=== PATIENT | female | born 1950 | race Caucasian/White ===

== ENCOUNTER → 2020-08-04 13:48 | Outpatient (CLI) | payer MEDICARE, OTHER, SELFPAY ==
--- NOTE | ~2020-08-04 | XR_ITS ---
EXAMINATION: XR foot RT min 3V DATE: 08/04/2020 14:28 INDICATION: Right foot pain TECHNIQUE: Dorsoplantar, lateral, and oblique views of the right foot were obtained. COMPARISON: 03/21/2015 FINDINGS: There is advanced osteoarthritis at the first metatarsophalangeal joint with interval worse ramo since the comparison. No fracture is identified. Bone alignment is normal. A plantar calcaneal e nthesophyte is present. The soft tissues are unremarkable. IMPRESSION: 1. 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 Reviewed, dictated and finalized at location A.
== END ==
PROVIDERS: PCP Family Medicine; Visit Provider Podiatrist Foot & Ankle Surgery
DX: M79.671 Pain in right foot (principal); M19.071 Primary osteoarthritis, right ankle and foot
CPT/HCPCS: 73630

== ENCOUNTER 2020-11-07 07:39 | Outpatient (CLI) | payer MEDICARE, OTHER, SELFPAY ==
--- NOTE | 2020-11-07 | EST_ITS ---
Patient Info Name: Iram Bower Age: 69 years : 1950 Gender: Female Ht: 60 in Wt: 101 lbs BSA: 1.39 m2 Exam Date: 11/07/2020 8:45 AM Exam Location: [facility] Patient Status: Outpatient Admit Date: 11/07/2020 Staff Ordering Physician: Marilyn, Yenny French MD Attending Provider: Marilyn, Yenny French MD Exercise Technologist: Rhonda Dixon RDCS Exam Type: CA stress ganesh w NM Study Info Indications Z01.818 - Encounter for other preprocedural examination A regadenoson stress test was performed. Protocol: Lexiscan Stress ECG Details Stage: REST Duration (min): 8 min : 58 sec HR (bpm): 65 SBP (mmHg): 127 DBP (mmHg): 78 Stage: REST Duration (min): 17 min : 17 sec HR (bpm): 66 SBP (mmHg): 127 DBP (mmHg): 78 Stage: STAGE 1 Duration (min): 0 min : 59 sec HR (bpm): 100 SBP (mmHg): 132 DBP (mmHg): 83 Stage: RECOVERY Duration (min): 1 min : 0 sec HR (bpm): 88 SBP (mmHg): 117 DBP (mmHg): 83 Stage: RECOVERY Duration (min): 2 min : 0 sec HR (bpm): 80 SBP (mmHg): 117 DBP (mmHg): 83 Stage: RECOVERY Duration (min): 3 min : 0 sec HR (bpm): 74 SBP (mmHg): 115 DBP (mmHg): 79 Stage: RECOVERY Duration (min): 4 min : 0 sec HR (bpm): 75 SBP (mmHg): 121 DBP (mmHg): 77 Stage: RECOVERY Duration (min): 4 min : 3 sec HR (bpm): 74 SBP (mmHg): 121 DBP (mmHg): 77 Rest HR: 66 bpm Peak HR: 107 bpm Rest Sys BP: 127 mmHg Peak Sys BP: 132 mmHg Max Pred HR: 151 bpm % Max Pred HR: 71 % Target HR: 128 bpm Max RPP: 14,124 bpm*mmHg Total Time: 1 min : 0 sec Rest Noonan BP: 78 mmHg Peak Noonan BP: 83 mmHg Total Dose: 0.4 mg Resting ECG Normal sinus rhythm - normal ECG. Stress ECG no EKG ischemic changes with lexiscan. Arrhythmias None. Report Signatures
--- NOTE | ~2020-11-07 | NM_ITS ---
EXAMINATION: NM ganesh stress w perfusion DATE: 11/07/2020 11:19 INDICATION: Preoperative evaluation patient with diabetes and coronary artery disease.. TECHNIQUE: Rest images were obtained following intravenous administration of 8 mCi Tc99m tetrofosmin (Myoview). The patient was infused intravenously with Lexiscan (Regadenoson). Then, 24.5 mCi Tc99m te trofosmin (Myoview) was administered intravenously, and stress images were obtained. Data was reconst ructed into short axis and horizontal and vertical long axis SPECT images. Gated SPECT images were al so obtained. COMPARISON: None. FINDINGS: There is no definite reversible or fixed perfusion abnormality to suggest ischemia or infar ction. There is normal left ventricular chamber size, wall motion and ejection fraction. Left ventr icular ejection fraction measures 56%. IMPRESSION: 1. Normal myocardial perfusion at rest and during stress. 2. Left ventricular ejection fraction measuring 56%. Reviewed, dictated and finalized at location A. [employer]
== END 2020-11-07 07:40 | disposition home or self-care (01) ==
PROVIDERS: PCP Family Medicine; Visit Provider Family Medicine
DX: Z01.810 Encounter for preprocedural cardiovascular examination (principal)
CPT/HCPCS: 78452; 93017; A9502; J2785

== ENCOUNTER 2021-05-05 12:53 | Outpatient (CLI) | payer MEDICARE, OTHER, SELFPAY ==
--- NOTE | ~2021-05-05 | US_ITS ---
EXAMINATION: US carotid duplex BI DATE: 05/05/2021 14:05 INDICATION: Carotid artery stenosis TECHNIQUE: Grayscale, color Doppler, and pulsed Doppler images of the cervical carotid arteries were obtained. The degree of vessel stenosis is placed in one of the following categories: normal, <50%, 5 0-69%, >=70% but less than near-occlusion, near-occlusion, or total occlusion. Note that percent sten osis relative to normal distal artery lumen diameter is indirectly measured from velocity measurement s as described by Peter, et al. Radiology 2003; [id number]:340-346. Notes: Normal: Peak systolic velocity <125 centimeters/sec and no plaque <50%. Peak systolic velocity <125 ( EDV <40; ICA/CCA PSV ratio <2.0; used these factors only a tandem lesions or low cardiac output or co ntralateral disease) 50-69 %: PSV 125-230 (EDV 40-100; ratio 2-4) >= 70% but less than near occlusion: PSV greater than 230 (EDV > 100; ratio> 4.0) Near Occlusion: PSV that is variable; markedly narrowed lumen Occlusion: Absent flow on color/spectral Doppler and no lumen on leong scale. COMPARISON: None. FINDINGS: RIGHT: The right common carotid artery (CCA) peak systolic velocity (PSV) is 95 cm/s. The right internal car otid artery (ICA) PSV is 127 cm/s. The right ICA end-diastolic velocity (EDV) is 51 cm/s. The right I CA/CCA PSV ratio is 1.3. The external carotid artery (ECA) PSV is 122 cm/s. There is antegrade flow i n the right vertebral artery. LEFT: The left CCA PSV is 107 cm/s. The left ICA PSV is 158 cm/s. The left ICA EDV is 56 cm/s. The left ICA /CCA PSV ratio is 1.5. The ECA PSV is 152 cm/s. There is to and fro flow in the left vertebral arter y. IMPRESSION: 1. 50-69% stenosis in the right internal carotid artery by sonographic criteria. 2. 50-69% stenosis in the left internal carotid artery by sonographic criteria. 3: To-and-fro flow left vertebral artery flow. Reviewed, dictated and finalized at location B. IMPRESSION: 1. 50-69% stenosis in the right internal carotid artery by sonographic criteria . 2. 50-69% stenosis in the left internal carotid artery by sonographic criteria. 3: To-and-fro flow left vertebral artery flow.
== END 2021-05-05 12:54 | disposition home or self-care (01) ==
LOC: ANHIMG 12:57
PROVIDERS: PCP Family Medicine; Visit Provider Family Medicine
DX: I65.23 Occlusion and stenosis of bilateral carotid arteries (principal)
CPT/HCPCS: 93880

== ENCOUNTER → 2022-05-25 14:52 | Outpatient (CLI) | payer MEDICARE, OTHER, SELFPAY ==
--- NOTE | ~2022-05-25 | XR_ITS ---
EXAMINATION: SACRUM/COCCYX DATE: 05/25/2022 15:27 INDICATION: Low back pain TECHNIQUE: Three views sacrum/coccyx FINDINGS: No prior studies for comparison. There is no displaced fracture of the sacrum. The coccyx demonstrates overall normal morphology with out acute angulation.There is a battery pack overlying the left hemipelvis with leads extending into the spine. There is mild bilateral symmetric degenerative change of the sacroiliac joints. IMPRESSION: 1. No acute displaced osseous abnormality of the sacrum. Suspicion for occult or nondisplaced sacral fracture can either be evaluated with CT or MRI. 2. Grossly normal morphology to the coccyx without acute angulation. However, due to the wide range of normal variation of the coccyx, acute injury would be best evaluated by clinical examination and patient's symptoms. Reviewed, dictated and finalized at location A.
--- NOTE | ~2022-05-25 | XR_ITS ---
XR hip LT min 2V 05/25/2022 15:27 Indication: Left hip and low back pain Procedure: 2 views left hip Comparison: No prior studies for comparison. Findings: There is a battery pack overlying the left pelvis. No significant joint space narrowing. No fracture, subluxation or dislocation. No significant soft tissue abnormality. No foreign body. Impression: 1: No significant bone or joint abnormality. Reviewed, dictated and finalized at location A. Impression: 1: No significant bone or joint abnormality.
--- NOTE | ~2022-05-25 | XR_ITS ---
XR lumbar spine 2-3V 05/25/2022 15:27 Indication: Unspecified back pain Procedure: 3 views lumbar spine Comparison: 02/02/2017 Findings: There is disc narrowing at L2-3, L3-4 and L4-5. There is advanced multilevel facet hypertro phy. There is grade 1 spondylolisthesis at L5-S1, likely secondary to spondylolysis. Mild levoscolios is. Sacral foramen are symmetric. There are neural stimulator leads extending into the thoracic spine . Impression: 1: Severe lumbar spondylosis with grade 1 spondylolisthesis at L5-S1 mild levocurvature. Reviewed, dictated and finalized at location A. Impression: 1: Severe lumbar spondylosis with grade 1 spondylolisthesis at L5-S1 mild levoc urvature.
== END ==
PROVIDERS: PCP Family Medicine; Visit Provider Physician Assistant
DX: M51.9 Unspecified thoracic, thoracolumbar and lumbosacral intervertebral disc disorder (principal); M54.50 Low back pain, unspecified; M47.816 Spondylosis without myelopathy or radiculopathy, lumbar region; M43.16 Spondylolisthesis, lumbar region; M41.87 Other forms of scoliosis, lumbosacral region
CPT/HCPCS: 72100; 72220; 73502

== ENCOUNTER → 2022-06-12 17:15 | Outpatient (CLI) | payer MEDICARE, OTHER, SELFPAY ==
--- NOTE | ~2022-06-12 | XR_ITS ---
EXAM: XR foot RT min 3V DATE: 06/12/2022 17:37 HISTORY: Dehiscence of surgical wound . COMPARISON: 08/04/2020. FINDINGS: Screw and plate fixation of the first MTP joint. No hardware fracture. Perihilar hardware l ucency about the more distal large screw, fixing distal plate. Decreased mineralization. No fracture or dislocation. No lytic or blastic lesion. Plantar enthesopathy. Mild scattered degenerative change. No erosion or periosteal change. Mild soft tissue swelling about the first MTP joint. No subcutaneou s emphysema. IMPRESSION: Perihilar hardware lucency about the distal most large fixation screw may reflect looseni ng or infection in the appropriate clinical context. No hardware fracture. Reviewed, dictated and finalized at location K. IMPRESSION: Perihilar hardware lucency about the distal most large fixation scr ew may reflect loosening or infection in the appropriate clinical context. No h ardware fracture.
== END ==
PROVIDERS: PCP Family Medicine; Visit Provider Podiatrist Foot & Ankle Surgery
DX: T81.30XA Disruption of wound, unspecified, initial encounter (principal)
CPT/HCPCS: 73630

== ENCOUNTER → 2022-07-19 17:50 | Outpatient (CLI) | payer MEDICARE, OTHER, SELFPAY ==
--- NOTE | ~2022-07-19 | XR_ITS ---
EXAMINATION: XR foot RT min 3V DATE: 07/19/2022 18:07 INDICATION: Right great toe fusion and hammertoe surgery. TECHNIQUE: Standing dorsal plantar, oblique and lateral views of the right foot were obtained. COMPARISON: 06/12/2022 FINDINGS: Again seen is a first metatarsophalangeal arthrodesis with dorsal plate and screw fixation. No instru mentation failure or surrounding lucency to suggest loosening or infection. There is still some disce rnible lucency along the joint line. Postoperative change of second third hammertoe corrections with osteotomies at the heads of the second and third proximal phalanges. Alignment remains near-anatomic. No fracture. Polyarticular osteoarthritis, moderate severity at the second metatarsophalangeal joint and mild at the remaining metatarsophalangeal and multiple tarsometatarsal and interphalangeal joint s. Small plantar calcaneal spur. Soft tissues are unremarkable. IMPRESSION: 1. Expected postoperative changes in the right forefoot as detailed above. No acute osseous abnormali ties. Reviewed, dictated and finalized at location A. IMPRESSION: 1. Expected postoperative changes in the right forefoot as detailed above. No a cute osseous abnormalities.
== END ==
PROVIDERS: PCP Family Medicine; Visit Provider Podiatrist Foot & Ankle Surgery
DX: M20.41 Other hammer toe(s) (acquired), right foot (principal); Z98.890 Other specified postprocedural states
CPT/HCPCS: 73630

== ENCOUNTER 2024-02-20 13:09 | Outpatient (CLI) | payer MEDICARE, OTHER, SELFPAY ==
--- NOTE | ~2024-02-20 | XR_ITS ---
Clinical Indication: Cough PA and lateral views of the chest: Comparison: None Findings: The lungs are clear, without evidence of focal consolidation or pleural effusion. Cardiome diastinal silhouette is within normal limits. Bones and soft tissues are unremarkable, aside from corona rostimulator device. Impression: Clear lungs. Reviewed, dictated and finalized at location . Impression: Clear lungs.
== END 2024-02-20 13:10 ==
PROVIDERS: PCP Family Medicine; Visit Provider Family Medicine
DX: R05.9 Cough, unspecified (principal)
CPT/HCPCS: 71046

== ENCOUNTER 2025-03-16 10:56 | Outpatient (CLI) | payer MEDICARE, OTHER, SELFPAY ==
--- NOTE | ~2025-03-16 | XR_ITS ---
SINGLE AP VIEW PELVIS Ordering provider: Sonia Connolly MD History: . Sacroiliitis . Comparison: None. FINDINGS: BONES: No acute fracture or dislocation. HIP JOINT SPACES: Normal. SACROILIAC JOINT SPACES/LUMBAR SPINE: The sacroiliac joint spaces are normal. Mild degenerative la es of the visualized lower lumbar spine. PUBIC SYMPHYSIS: Normal. SOFT TISSUES: Normal. Spinal stimulator is noted on the left side. IMPRESSION: No acute osseous abnormality pelvis. Reviewed, dictated and finalized at location A.
== END 2025-03-16 10:57 | disposition home or self-care (01) ==
LOC: MICIMG 10:58
PROVIDERS: PCP Physical Medicine & Rehabilitation Pain Medicine; Visit Provider Physical Medicine & Rehabilitation Pain Medicine
DX: M46.1 Sacroiliitis, not elsewhere classified (principal)
CPT/HCPCS: 72170